=== PATIENT | female | born 1960 | race Caucasian/White ===

== ENCOUNTER 2016-09-24 16:10 | Observation (INO) ==
[2016-09-24] MEDS ORDERED: ASPIRIN PO STA (16:13)
--- NOTE | 2016-09-24 16:24 | EKG Report ---
Test Performed on : 09/24/2016 4:14:41 PM Test Reason : CHEST PAIN Blood Pressure : / mmHG Vent. Rate : 077 BPM Atrial Rate : 077 BPM P-R Int : 140 ms QRS Dur : 082 ms QT Int : 382 ms P-R-T Axes : 019 -30 062 degrees QTc Int : 432 ms Normal sinus rhythm. Left axis deviation Low voltage QRS Abnormal ECG When compared with ECG of 25-APR-2014 10:34, No significant change was found Unconfirmed Result
[2016-09-24 16:46] LABS: MANUAL DIFF NEEDED? NO
[2016-09-24 16:48] LABS: BASO% 0.7 % (0.0-0.8); EOS# 0.24 X1000 (0.0-0.7); EOS% 4.2 % (0.0-10.0); HEMATOCRIT 38.6 % (37.0-47.0); HEMOGLOBIN 13.2 g/dL (12.0-16.0); IMM GRAN# 0.01 X1000 (0.0-0.04); IMM GRAN% 0.2 % (0.0-0.5); LYMPH# 2.25 X1000 (1.2-3.4); MCH 31.3 PG (27-31); MCHC 34.2 g/dL (33-37); MCV 91.5 FL (81-99); MONO# 0.47 X1000 (0.11-0.59); MONO% 8.1 % (1.7-9.3); NEUT% 47.8 % (42.2-75.2); PLT 287 X1000 (130-400); RBC 4.22 XMIL (4.2-5.4)
[2016-09-24] MEDS ORDERED: LOPRESSOR IV ONE (17:02)
[2016-09-24 17:10] LABS: INR 0.97 (0.86-1.15); PROTIME 13.2 Seconds (12.1-15.5); PTT PL 33.2 Seconds (22.6-43.9)
--- NOTE | 2016-09-24 17:11 | Diag Imaging Result Document ---
PROCEDURE NAME: CHEST-2 VIEWS - 09/24/2016 CHEST, 2 VIEWS: COMPARISON: 05/07/2015. INDICATION: Chest pain. FINDINGS: Cardiomediastinal silhouette is within normal limits. The pulmonary vasculature is not congested. No infiltrates or effusions are identified. IMPRESSION: No acute cardiopulmonary abnormality.
[2016-09-24 17:15] LABS: AGAP 14; ALBUMIN 4.7 g/dL (3.5-5.0); ALKALINE PHOSPHATASE 75 U/L (32-104); BUN 17 mg/dL (8-22); CALCIUM 9.6 mg/dL (8.8-10.2); CHLORIDE 103 mmol/L (98-107); CK PROFILE 136 U/L (24-173); COSMO 279; GOT 18 U/L (10-30); GPT 15 U/L (10-36); MAGNESIUM 1.9 mg/dL (1.5-2.7); POTASSIUM 3.5 mmol/L (3.5-5.1); SODIUM 139 mmol/L (136-145); TCO2 22 mmol/L (25-35); TOTAL PROTEIN 8.2 g/dL (6.3-8.3)
[2016-09-24] MEDS ORDERED: NORCO-7.5 PO ONE (17:46)
--- NOTE | 2016-09-24 17:53 | PROVIDER DOCUMENTATION ---
This chart was entered by Ha Rice Scribe, acting as scribe for Jammie Vogel MD. HPI-Chest Pain - General Chief Complaint: Chest Pain Stated Complaint: CHEST PAIN Time Seen by Provider: 09/24/16 16:12 Source: patient Allergies/Adverse Reactions: Patient Allergies Allergy/AdvReac Type Severity Reaction Status Date / Time morphine Allergy Intermediate RASH Verified 09/24/16 16:19 Penicillins Allergy HIVES Verified 09/24/16 16:19 Home Medications: Home Medication List Medication Instructions Recorded Confirmed Last Taken Type Esomeprazole [Nexium] 40 mg PO DAILY 07/25/14 11/30/15 11/29/15 08:00 History Losartan Potassium 50 mg PO DAILY 11/23/15 11/30/15 11/29/15 08:00 History Venlafaxine HCl [Effexor Xr] 150 mg PO DAILY 11/23/15 11/30/15 11/29/15 08:00 History Ciprofloxacin [Cipro] 250 mg PO BID #6 tablet 11/30/15 Unknown Rx Phenazopyridine HCl [Pyridium] 200 mg PO TID PRN #15 tablet 11/30/15 Unknown Rx Sennosides/Docusate Sodium 2 cap PO DAILY PRN PRN 11/30/15 11/30/15 11/29/15 08: 00 History [Senokot-S Tablet] - History of Present Illness-CP Nature of Presenting Problem: patient is a 56 yo F that presents to the ER with substernal chest pressure/ tightness with radiation to her back and left arm intermitted x 3 weeks. She has had nausea, heartburn, and sweating with it. no vomiting or shortness of breath. Reports being on stress due to daughters lifestyle and having to help raise her grandkids Location: reports: substernal Chest Pain Radiation: reports: arms (left arm), back Quality of Pain: reports: tightness Severity in ED: moderate Onset/Duration: gradual, other (3 weeks ago) Timing: still present, intermittent, getting worse (today) Context/Activities at Onset: reports: recent emotional stress Modifying Factors: improves with: nothing Associated Symptoms: reports: back pain, diaphoresis, nausea. denies: dizziness , fever/chills, shortness of breath, vomiting Nitro Today/Relief: no nitro taken today Aspirin Treatment Today: 325 mg x 1, provided by ED Prior Chest Pain/Cardiac Workup: reports: stress test (4 years ago nml) Similar Symptoms Previously?: No Recently Seen Here or By Another Healthcare Provider: No Review of Systems - Adult - REVIEW OF SYSTEMS - ADULT Constitutional: denies: chills, fever Eyes: reports: no symptoms reported Ears, Nose, Mouth & Throat: reports: no symptoms reported Cardiovascular: reports: chest pain. denies: palpitations, syncope Respiratory: denies: chronic cough, cough, shortness of breath, wheezing Gastrointestinal: reports: frequent heartburn, nausea. denies: abdominal pain, diarrhea, vomiting Genitourinary: reports: no symptoms reported Musculoskeletal: reports: back pain. denies: joint pain, joint swelling, neck pain Integumentary: reports: no symptoms reported Neurological: denies: dizziness/vertigo, headache/migraines Psychiatric: reports: no symptoms reported Endocrine: reports: no symptoms reported Hematologic/Lymphatic: reports: no symptoms reported Allergic/Immunologic: reports: no symptoms reported All Other Systems: Reviewed and Negative Past History - Adult - PAST MEDICAL HISTORY-ADULT Review of Records: reports: Old Records Reviewed, Nursing Assessment Review, Medications Reviewed Cardiovascular: reports: HTN Gastrointestinal: reports: Crohn's, colitis, inflammatory bowel disease, IBS Psychiatric: reports: anxiety - PRIOR SURGERIES/PROCEDURES Surgical/Procedure History: reports: hysterectomy - IMMUNIZATION STATUS Childhood Immunizations: See Nurse Assessment Flu Vaccine: See Nurse Assessment - FAMILY HISTORY Family History: CAD over 55 yo, cancer (lung), other (Bright's disease) - SOCIAL HISTORY Smoking: non-smoker Alcohol Use Frequency: rarely Living Situation: family Physical Exam-General - PHYSICAL EXAM-ADULT Initial Vital Signs Reviewed: Yes - CONSTITUTIONAL General Appearance: alert, anxious - EYES Eyes: PERRL/EOMI, pink conjunctivae - HEAD, EARS, NOSE, MOUTH & THROAT HENMT: moist mucous membranes, normal ENT inspection - NECK Neck: non-tender, full range of motion, normal inspection - RESPIRATORY Respiratory: chest non-tender, lungs clear, normal breath sounds, no respiratory distress, no accessory muscle use - CARDIOVASCULAR Cardiovascular: regular rate, rhythm, no edema, no murmur - GASTROINTESTINAL (ABDOMEN) Abdominal Exam: normal bowel sounds, non tender, soft, no organomegaly, no pulsatile mass - MUSCULOSKELETAL Extremity: normal range of motion, normal inspection, no pedal edema - SKIN Integumentary: normal color, warm/dry - NEUROLOGIC Neurologic: grossly normal, no motor/sensory deficits - PSYCHIATRIC Psych/Mental Status: oriented x 3, anxious Progress - PLAN OF CARE/RESULTS Progress/Plan/Lab Results: Vital Signs - 8 hr 09/24/16 16:15 09/24/16 16:21 Pulse Rate 92 H 77 Respiratory Rate 23 21 Blood Pressure 197/111 178/99 Laboratory Results - last 24 hr 09/24/16 09/24/16 09/24/16 16:15 16:15 16:15 WBC RBC Hgb Hct MCV MCH MCHC RDW Std Deviation Plt Count MPV Immature Gran % (Auto) Neut % (Auto) Lymph % (Auto) [place] % (Auto) Eos % (Auto) Baso % (Auto) Immature Gran # (Auto) Neut # (Auto) Lymph # (Auto) [place] # (Auto) Eos # (Auto) Baso # (Auto) PT INR APTT (Factor Assay) D-Dimer Sodium 139 Potassium 3.5 Chloride 103 Carbon Dioxide 22 L Anion Gap 14 BUN 17 Creatinine 0.8 Estimated GFR/1.73 m2 > 60 BUN/Creatinine Ratio 21 Glucose 91 Calculated Osmolality 279 Calcium 9.6 Magnesium 1.9 Total Bilirubin 0.20 AST 18 ALT 15 Alkaline Phosphatase 75 Creatine Kinase 136 Troponin T < 0.010 Poi-P-Frkwkcicvmo Pept 79 Total Protein 8.2 Albumin 4.7 Globulin 4.0 Albumin/Globulin Ratio 1.0 09/24/16 09/24/16 16:15 16:15 WBC 5.77 RBC 4.22 Hgb 13.2 Hct 38.6 MCV 91.5 MCH 31.3 H MCHC 34.2 RDW Std Deviation 12.7 Plt Count 287 MPV 10.0 Immature Gran % (Auto) 0.2 Neut % (Auto) 47.8 Lymph % (Auto) 39.0 Sierra % (Auto) 8.1 Eos % (Auto) 4.2 Baso % (Auto) 0.7 Immature Gran # (Auto) 0.01 Neut # (Auto) 2.76 Lymph # (Auto) 2.25 [place] # (Auto) 0.47 Eos # (Auto) 0.24 Baso # (Auto) 0.04 PT 13.2 INR 0.97 APTT (Factor Assay) 33.2 D-Dimer 0.27 Sodium Potassium Chloride Carbon Dioxide Anion Gap BUN Creatinine Estimated GFR/1.73 m2 BUN/Creatinine Ratio Glucose Calculated Osmolality Calcium Magnesium Total Bilirubin AST ALT Alkaline Phosphatase Creatine Kinase Troponin T Yjj-H-Plsrhkmvmco Pept Total Protein Albumin Globulin Albumin/Globulin Ratio Orders Category Date Time Status Cardiac Monitoring DIRECTED Care 09/24/16 16:13 Active Saline Loc NOW Care 09/24/16 16:13 Active CHEST-2 VIEWS [RAD] Stat Exams 09/24/16 16:13 Completed CBC WITH ELECTRONIC DIFF [HEME] Stat Lab 09/24/16 16:15 Completed CK PROFILE [SP CHEM] Stat Lab 09/24/16 16:15 Completed COMPREHENSIVE METABOLIC PANEL [CHEM] Stat Lab 09/24/16 16:[address] D-DIMER [address] [COAG] Stat Lab 09/24/16 16:15 Completed MAGNESIUM [CHEM] Stat Lab 09/24/16 16:15 Completed PRO B-NATRIURETIC PEPTIDE Stat Lab 09/24/16 16:15 Completed [address]IME WITH INR PL [COAG] Stat Lab 09/24/16 16:[address] [COAG] Stat Lab 09/24/16 16:15 Completed TROPONIN T Stat Lab 09/24/16 16:15 Completed UDS [URINE DRUG SCREEN PL] Stat Lab 09/24/16 16:[address] W/POSS RFLX CULT [URINALYSIS] Stat Lab 09/24/16 16:16 Uncollected Aspirin Med 09/24/16 16:13 Discontinued 325 mg PO STAT STA Hydrocodone/APAP 7.5 mg/325 mg [[place]-7.5] Med 09/24/16 17:46 Discontinued 1 each PO NOW ONE Metoprolol [Lopressor] Med 09/24/16 17:02 Discontinued 5 mg IV NOW ONE EKG [EKG] Stat Ther 09/24/16 16:13 Draft Result Diagrams: 09/24/16 16:15 09/24/16 16:15 - REASSESSMENT Reassessment #1 Time Reassessed: 17:48 Status: unchanged Reassessment Comment: patient still has chest pain - EKG 1 Time of EKG reading by physician:: 16:14 EKG Read and Signed by:: Jammie Vogel EKG Interpretation (*Must complete 3 of following elements*): Abnormal Rate: 77 Rhythm: NSR [place]: left QRS: other (Low Voltage QRS) GA Interval: normal ST Wave: normal - XRAY 1 XRAY Study: Chest Impression: Abnormal XRAY Interpretation: NAD - CONSULTS/PCP/HOSPITALIST Notification Time Discussed: 17:52 Reason/Comments: Admit to Dr. Ling Departure - Departure Time of Disposition Decision: 17:51 DIAGNOSIS: Elevated blood pressure reading Chest pain Qualifiers: Chest pain type: precordial pain Qualified Code(s): R07.2 - Precordial pain Disposition: ADMITTED INPATIENT 09 Certified Medical Emergency: Emergent Condition: Stable Referrals and Follow-Ups: Trell Henley MD [Primary Care Provider] - - Critical Care Note This patient required my direct & personal management of CC.: No This chart was documented by the indicated scribe, (Ha Rice, Scribe) and accurately reflects the services I performed and decisions made by me, Jammie Vogel MD, as attested by the provider's signature.
[2016-09-24 21:40] LABS: URINE CULTURE PL NEEDED? NO
[2016-09-24 21:54] LABS: BILIRUBIN URINE NEGATIVE (NEGATIVE); BLOOD URINE 2+ (NEGATIVE); CLARITY CLEAR (CLEAR); COLOR YELLOW; GLUCOSE URINE NEGATIVE (NEGATIVE); LEUKOCYTES URINE NEGATIVE (NEGATIVE); NITRITE URINE NEGATIVE (NEGATIVE); PROTEIN URINE NEGATIVE (NEGATIVE); SP GRAVITY URINE 1.005; UR AMPHETAMINES QUAL NONE DETECTED (NONE DETECT); UR BARBITUATES QUAL NONE DETECTED (NONE DETECT); UR BENZODIAZEPIN QUAL NONE DETECTED (NONE DETECT); UR CANNABINOIDS QUAL NONE DETECTED (NONE DETECT); UR COCAINE QUAL NONE DETECTED (NONE DETECT); UR MDMA QUAL NONE DETECTED (NONE DETECT); UR METHADONE QUAL NONE DETECTED (NONE DETECT); UR METHAMPHETAMINE QUAL NONE DETECTED (NONE DETECT); UR OPIATES QUAL NONE DETECTED (NONE DETECT); UR OXYCODONE QUAL NONE DETECTED (NONE DETECT); UR PCP QUAL NONE DETECTED (NONE DETECT); UR TCA QUAL PRESUMPTIVE POSITIVE (NONE DETECT); UROBILINOGEN URINE NORMAL
[2016-09-24 21:58] LABS: URINE SOURCE CLEAN CATCH
[2016-09-24 21:59] LABS: URINE EPITHELIAL CELLS <10 /HPF (<10); URINE WBC <10 /HPF (<10)
[2016-09-24] MEDS ORDERED: ROBAXIN PO PRN (22:05)
[2016-09-24] MEDS ORDERED: DESYREL PO SCH (23:00)
[2016-09-25] MEDS ORDERED: PRILOSEC PO SCH (07:00)
[2016-09-25] MEDS ORDERED: EFFEXOR XR PO SCH (09:00)
[2016-09-25] MEDS ORDERED: MOBIC PO SCH (09:00)
[2016-09-25] MEDS ORDERED: COZAAR PO SCH (09:00)
--- NOTE | 2016-09-25 10:58 | EKG Report ---
Test Performed on : 09/25/2016 08:27:19 AM Test Reason : Lexiscan Blood Pressure : / mmHG Vent. Rate : 056 BPM Atrial Rate : 056 BPM P-R Int : 144 ms QRS Dur : 082 ms QT Int : 450 ms P-R-T Axes : 026 -17 061 degrees QTc Int : 434 ms Sinus bradycardia. Otherwise normal ECG When compared with ECG of 24-SEP-2016 16:14, No significant change was found Confirmed by Addi Tena MD ([id number]) on 10/23/2016 10:17:16 PM
--- NOTE | 2016-09-25 12:30 | HISTORY AND PHYSICAL ---
CHIEF COMPLAINT: Substernal chest pressure and tightness. HISTORY OF PRESENT ILLNESS: This is a 56-year-old female with a history of hypertension and anxiety who presented to the emergency room complaining of chest pressure and tightness that has been present intermittently for 3-4 weeks. She does have occasional nausea, heartburn and diaphoresis with this. She denies any palpitations, dizziness, syncope, vomiting or shortness of breath. She does state that she has had a great deal of stress on her and the fact that due to her daughter's lifestyle and raising her grandchildren. She does describe this as a tightness that she feels substernal as it goes into her left arm. It seems to be exacerbated by stress and relieves spontaneously. She does report having a stress test 4 years ago that was normal. On arrival to the emergency room, she did have a blood pressure of 197/111 with a heart rate of 92. She was given Lopressor 5 mg IV as well as a [place] 7.5, and then a regular strength aspirin. Blood pressures did decrease to the 150s over 90s within 2 hours. Chest x-ray revealed no acute abnormalities. Her EKG revealed sinus rhythm at a rate of [address]-T changes. She was admitted for further evaluation and treatment. PAST MEDICAL HISTORY: 1. Hypertension. 2. Crohn's. 3. IBS. 4. Anxiety. PAST SURGICAL HISTORY: Hysterectomy. SOCIAL HISTORY: Occasional alcohol. She denies tobacco or illicit drug use. ALLERGIES: Morphine which causes a rash and penicillin which causes hives. HOME MEDICATIONS: 1. Trazodone 1 tab at bedtime. 2. Omeprazole 40 daily. 3. Losartan 50 mg daily. 4. Effexor 150 daily. 5. Meloxicam 10 daily. 6. Methocarbamol 500 mg 4 times a day. Of note, the trazodone is 100 mg at bedtime. REVIEW OF SYSTEMS: A 14 point review of systems is discussed with patient with pertinent positives stated in the HPI. She denied palpitations, syncope, dizziness, cough, fever, chills, PND, orthopnea, vomiting, diarrhea, constipation, black or bloody vomitus, black or bloody stools, hematuria, dysuria, or frequency and urgency. PHYSICAL EXAMINATION: GENERAL: This is a 56-year-old female who is sitting in the bed, in no distress. VITAL SIGNS: Blood pressure is 156/90 with a heart rate of 79, respirations are 18, temperature is 98 degrees with room air saturations of 98%. HEENT: Head is normocephalic, atraumatic. Pupils equal, round, react to light. EOMs are intact. Sclerae anicteric. Mucous membranes are moist. NECK: Supple. Trachea midline. CARDIOVASCULAR: Regular rate and rhythm. S1 and S2 appreciated. PULMONARY: Breath sounds are clear. No increased work of breathing noted. GASTROINTESTINAL: Abdomen is soft, nontender, nondistended with bowel sounds in all 4 quadrants. BACK: No CVAT. No spine tenderness. MUSCULOSKELETAL: Good range of motion of joints. EXTREMITIES: No clubbing, cyanosis, or edema. Pulses are palpable x 4. Calves are nontender. NEUROLOGIC: She is alert and oriented x3. DIAGNOSTICS: WBC is 5.7 with a hemoglobin of 13.2, hematocrit 38.6, and platelets of 287,000. INR is 0.97 with a D-dimer of 0.27. Sodium is 139, potassium 3.5, BUN 17, creatinine 0.8, with a glucose of 91. Troponins are 0.010 on multiple occasions. Urine drug screen is positive for tricyclics. Chest x-ray reveals no acute processes and EKG reveals sinus rhythm at a rate of [address]-T changes. ASSESSMENT AND PLAN: 1. Chest pain. The patient had a negative cardiac workup 4 years ago and she states that the chest pain started after being exposed to stressors of her daughter's lifestyle and raising her grandchildren. It does seem to present at times of increased stress. She will remain NPO. We will hold her beta blockers. A Lexiscan will be performed today. Troponins were negative on multiple occasions and we will continue with telemetry. 2. Hypertension. WE will identify and continue her home medications. 3. Anxiety. Aware. We will continue her home medications. DISPOSITION: Hopefully if Lexiscan is negative she can be discharged home with followup to primary care physician. Dictated by TOM Pearson for Renato Ling MD cc: TOM Pearson MD
[2016-09-25] MEDS ORDERED: ZOFRAN IV PRN (14:39)
[2016-09-25 15:07] VITALS: BP 167/85
--- NOTE | 2016-09-25 16:05 | Diag Imaging Result Document ---
PROCEDURE NAME: MYOCARDIAL PERF SCAN, STR/REST - 09/25/2016 EXERCISE SESTAMIBI INTERPRETATION: SUMMARY: The patient was administered 10.9 millicuries of technetium-99m sestamibi after which resting cardiac images were obtained. Patient was subsequently exercised on a treadmill according to a Roberto protocol and exercised for a total of 4 minutes and 1 second achieving a maximum workload of stage II and 1.0 METS. With exercise, the patient denied chest discomfort. With exercise, the heart increased from 75 beats per minute to 92 beats per minute representing 64% of maximum age predicted heart rate. The blood pressure increased to 157/83 to 170/74. LEXISCAN SESTAMIBI INTERPRETATION: SUMMARY: The patient was administered 10.9 millicuries of technetium-99m sestamibi after which resting cardiac images were obtained. The patient was subsequently stressed using a Lexiscan protocol. The heart increased from 78 beats per minute. EXERCISE SESTAMIBI INTERPRETATION: SUMMARY: The patient was administered 10.9 millicuries technetium-99m sestamibi after which resting cardiac images were obtained. Patient was subsequently stressed using a treadmill protocol. Please see separate report for interpretation of stress ECG. At peak stress the patient was administered 31.4 millicuries of technetium-99m sestamibi after which gated stress cardiac images were obtained. SPECT images were reconstructed in the short, horizontal long, and vertical long axis. Review of these images demonstrated homogeneous uptake of radiopharmaceutical on both stress and resting images. Gated images demonstrate calculated left ejection fraction of 84% with symmetrical wall motion/thickening. CONCLUSIONS: Normal exercise sestamibi images. cc: MD Esha Stephenson CRNP
--- NOTE | 2016-09-25 21:18 | DISCHARGE SUMMARY ---
ADMISSION DATE: 09/24/2016 DISCHARGE DATE: 09/25/2016 DIAGNOSES: 1. Chest pain with negative troponins and a normal Lexiscan. 2. Hypertension. 3. Anxiety. HOSPITAL COURSE: Ms. Jaffe presented to the emergency room complaining of chest tightness and pressure that has been present for 3-4 weeks along with some occasional nausea, heartburn and diaphoresis. She states that these symptoms seem to come on with stress and she does admit to being under stress at home as to issues with her daughter and raising her grandchildren. EKG revealed sinus rhythm at a rate of 77, no ST-T changes. Her chest x-ray revealed no acute abnormalities. Troponins were negative. Lexiscan revealed normal exercise images. On arrival to the emergency room, she did have a blood pressure of 197/111. This did decrease with [place] and Lopressor IV. Pressures have remained in the 130s to 150s/60s to 80s. DISCHARGE PHYSICAL EXAMINATION: Cardiovascular: Regular rate and rhythm. S1, S2 appreciated. Pulmonary: Breath sounds are clear. No increased work of breathing noted. Gastrointestinal: Abdomen is soft, nontender, nondistended. Bowel sounds in all 4 quadrants. Extremities: No clubbing, cyanosis, or edema. Calves are nontender. Pulses palpable x4. Neurologic: She is alert and oriented x3 with cranial nerves 2-12 grossly intact. DISCHARGE MEDICATIONS: Trazodone 100 mg at bedtime, Vivonex 10 mg daily, Effexor XR 150 daily, losartan 50 daily, methocarbamol 2 tabs 4 times a day 1000 mg, omeprazole 1 cap stool at 7 a.m. DISCHARGE ACTIVITY: As tolerated. DISCHARGE DIET: Healthy heart. FOLLOWUP: She is to follow up with her primary care physician, Dr. Trell Henley, in 1-2 weeks for further evaluation. She is being discharged home in stable condition with family members. TIME SPENT: This is a greater than 30 minute discharge. Dictated by TOM Pearson for Renato Ling MD cc: TOM Pearson MD
== END 2016-09-25 17:20 | disposition home or self-care (01) ==
LOC: P.MEDSURG 16:10 → P.ED 16:10 → SUATTDRO 16:11 → P.MEDSURG 19:17
PROVIDERS: ATTEND Family Medicine